=== PATIENT | female | born 1990 | race African-American/Black ===

== ENCOUNTER 2023-12-20 09:12 | Emergency (ER) | payer OTHER, SELFPAY ==
[2023-12-20 09:19] VITALS: BP 132/89; PULSE 91; TEMP 36.4; O2SAT 100; BMI 27.5
[2023-12-20 09:25] VITALS: BP 132/89; O2SAT 100
--- NOTE | 2023-12-20 09:55 | ECG_ITS ---
The [facility] [place] Test Date: 2023-12-20 Pat Name: NBA IRVIN Department: Room: - Gender: Female Nurse Ortho: : 1990 Requested By: Order Number: [id number] Reading MD: JOE SUTTON Measurements Intervals [place] Rate: 77 P: 9 CO: 126 QRS: -65 QRSD: 88 T: -17 QT: 362 QTc: 394 Interpretive Statements 1100 Sinus rhythm 2420 RSR (QR) in lead V1/V2, consistent with right ventricular conduction delay 7200 Abnormal left axis deviation Nonspecific T wave changes inferiorly 9130 borderline ECG No previous ECG available for comparison Electronically Signed On 12-20-2023 18:17:46 EDT by JOE SUTTON
--- NOTE | 2023-12-20 09:55 | XR_ITS ---
The [address] [address] Patient Name: NBA IRVIN MRN: [id number] date: 1990 Sex: F Assigned Patient Location: ER Current Patient Location: ER Accession/Order Number: [id number] Exam Date: 12/20/2023 10:55 Report Date: 12/20/2023 11:46 At the request of: DELTA SHI Procedure: XR chest 1V EXAM: Portable chest REASON FOR EXAM: Peripheral edema and shortness of breath with exertion for 2 weeks. TECHNIQUE: A portable frontal view of the chest was obtained. COMPARISON: 11/28/2015. FINDINGS: The lungs are well-inflated and clear. The heart and mediastinum are normal. There is no mass or pathologic adenopathy. Osseous structures are normal. XR/XR chest 1V IMPRESSION: No acute cardiopulmonary process. Electronically authenticated by: ADRIEL LINK Date: 12/20/2023 11:46
--- NOTE | 2023-12-20 09:56 | ED_ITS ---
HPI HPI - General Adult General Chief complaint: Chest Pain Stated complaint: BILATERAL SWELLING IN HANDS AND FEET/CHEST PAIN Time Seen by Provider: 12/20/23 09:18 History of Present Illness HPI narrative: 33-year-old female presented to the emergency department for swelling in her feet and ankles and hands. She has been having this for about 3 weeks and went to urgent care. She states they did some blood test and told her that her cholesterol was high. No prescriptions were given and she was told to follow-up with her PCP but she does not have 1. She states that the swelling gets worse as she is standing and when she first wakes up in the morning the swelling in her feet is not too bad. She does not complain of chest pain but feels sometimes a heaviness. No fever or cough. Related Data Previous Rx's ?Medication ?Instructions ?Recorded furosemide 20 mg tablet (Lasix) 20 mg PO DAILY #7 tabs 12/20/23 Allergies Allergy/AdvReac Type Severity Reaction Status Date / Time No Known Drug Allergies Allergy Verified 12/20/23 09:19 Opioid HPI Opioid Management Most Recent Opioid Data: No Data to Display Review of Systems ROS Narrative A ten point review of systems is negative except as noted above. Exam Narrative Exam Narrative: Nurses note and vital signs reviewed and patient is not hypoxic. General: The patient appears well and in no apparent distress. Patient is resting comfortably on cart. Skin: Warm, dry, no pallor noted. There is no rash noted. Head: Normocephalic, atraumatic Eye: Normal conjunctiva, no drainage Ears, Nose, Mouth, and Throat: oral mucosa is moist. Nares patent. Cardiovascular: Regular Rate and Rhythm Respiratory: Patient is in no distress, no accessory muscle use, lungs are clear to auscultation, no wheezing, rales or rhonchi Back: non-tender GI: Normal bowel sounds, no tenderness to palpation, no masses appreciated. No rebound, guarding, or rigidity noted. Musculoskeletal: The patient has no evidence of calf tenderness, trace edema is present in her feet and hands, symmetrical pulses noted bilaterally Neurological: A&O, normal speech Psychiatric: Cooperative Constitutional Vital Signs, click to edit/add: Last Vital Signs Temp 97.6 F 12/20/23 09:19 Pulse 87 12/20/23 12:20 Resp 18 12/20/23 12:20 BP 130/82 12/20/23 12:20 Pulse Ox 100 12/20/23 12:20 O2 Del Method Room Air 12/20/23 09:19 Course Vital Signs Vital signs: Vital Signs Temperature 97.6 F 12/20/23 09:19 Pulse Rate 91 H 12/20/23 09:19 Respiratory Rate 18 12/20/23 09:19 Blood Pressure 132/89 12/20/23 09:19 Pulse Oximetry 100 12/20/23 09:19 Oxygen Delivery Method Room Air 12/20/23 09:19 Temperature 97.6 F 12/20/23 09:19 Pulse Rate 87 12/20/23 12:20 Respiratory Rate 18 12/20/23 12:20 Blood Pressure 130/82 12/20/23 12:20 Pulse Oximetry 100 12/20/23 12:20 Oxygen Delivery Method Room Air 12/20/23 09:19 Medical Decision Making MDM Narrative Medical decision making narrative: Her workup here is negative. She will be placed on a short course of Lasix and was given a list of PCPs. Treatment diagnosis and follow-up were discussed with the patient. Differential Diagnosis Differential Diagnosis: Peripheral edema, kidney failure, CHF Lab Data Lab results reviewed: Yes I reviewed the patient's lab results Labs: Lab Results 12/20/23 12/20/23 Range/Units 09:54 11:00 WBC 6.9 (4.0-11.0) 10^3/uL RBC 4.21 (4.20-5.40) 10^6/uL Hgb 10.3 L (12.0-16.0) g/dL Hct 33.8 L (36.0-48.0) % MCV 80.3 L (81.0-99.0) fL MCH 24.5 L (26.7-34.0) pg MCHC 30.5 (29.9-35.2) g/dL RDW 14.1 (11.0-15.0) % Plt Count 256 (150-450) 10^3/uL MPV 11.2 (9.5-13.5) fL Neut % (Auto) 61.7 (43.0-75.0) % Lymph % (Auto) 28.8 (20.5-60.0) % Larue % (Auto) 6.9 (1.7-12.0) % Eos % (Auto) 1.7 (0.9-7.0) % Baso % (Auto) 0.6 (0.2-2.0) % Neut # (Auto) 4.3 (1.4-6.5) 10^3/uL Lymph # (Auto) 2.0 (1.2-3.8) 10^3/uL Larue # (Auto) 0.5 (0.3-0.8) 10^3/uL Eos # (Auto) 0.1 (0.0-0.7) 10^3/uL Baso # (Auto) 0.0 (0.0-0.1) 10^3/uL Abs Immat Gran (auto) 0.02 (0.00-0.03) 10^3/uL Imm/Tot Granulo (auto) 0.3 (0.0-0.5) % Sodium 139 (136-145) mmol/L Potassium 3.5 (3.5-5.1) mmol/L Chloride 103 (98-107) mmol/L Carbon Dioxide 25.2 (21.0-32.0) mmol/L Anion Gap 14.3 BUN 12.0 (7.0-18.0) mg/dL Creatinine 0.96 (0.55-1.02) mg/dL Est GFR ( Amer) >60 (>=60) Est GFR (Non-Af Amer) >60 (>=60) BUN/Creatinine Ratio 12.5 Glucose 106 (74-106) mg/dL Calcium 8.9 (8.5-10.1) mg/dL Total Bilirubin 0.8 (0.2-1.0) mg/dL Direct Bilirubin 0.2 (0.0-0.2) mg/dL AST 18 (15-37) U/L ALT 25 (14-59) U/L Alkaline Phosphatase 57 (46-116) U/L Troponin I High Sens <4.0 L (4.0-51.3) pg/mL Total Protein 7.5 (6.4-8.2) g/dL Albumin 4.0 (3.4-5.0) g/dL Globulin 3.5 g/dL Albumin/Globulin Ratio 1.1 Urine Color Yellow (YELLOW) Urine Clarity Clear (CLEAR) Urine pH 6.0 (5.0-9.0) Ur Specific [place] >=1.030 A (1.005-1.025) Urine Protein Negative (NEG/TRACE) mg/dL Urine Glucose (UA) Negative (NEGATIVE) mg/dL Urine Ketones Negative (NEGATIVE) mg/dL Urine Occult Blood Negative (NEGATIVE) Urine Nitrite Negative (NEGATIVE) Urine Bilirubin Negative (NEGATIVE) Urine Urobilinogen 1.0 (0.2-1.0) EU/dL Ur Leukocyte Esterase Negative (NEGATIVE) Urine RBC None seen (0-2) #/HPF Urine WBC None seen (NONE SEEN) #/HPF Ur Squamous Epith Cells Many A (NONE/RARE) #/LPF Urine Bacteria Trace A (NONE SEEN) #/HPF Urine Mucus None seen (NONE SEEN) ECG Data Attestation: I personally reviewed and interpreted this ECG as follows: (EKG on my interpretation shows normal sinus rhythm without acute change) Discharge Plan Discharge Stand Alone Forms: Portal Instructions Chief Complaint: Chest Pain Clinical Impression: Peripheral edema Patient Disposition: Home, Self-Care Time of Disposition Decision: 12:25 Condition: Good Prescriptions / Home Meds: New furosemide [Lasix] 20 mg tablet 20 mg PO DAILY Qty: 7 0RF Print Language: Citizen Of [place] Instructions: Leg Edema (ED) Additional Instructions: See attached list of PCPs Referrals: Physician,Non-Staff, MD [Primary Care Provider] - 1 week
[2023-12-20 10:04] LABS: Basophils Percent Auto 0.6 % (0.2-2.0); Eosinophils Absolute Auto 0.1 10^3/uL (0.0-0.7); Eosinophils Percent Auto 1.7 % (0.9-7.0); Hematocrit 33.8 % (36.0-48.0); Hemoglobin 10.3 g/dL (12.0-16.0); Immature Granulocytes Abs Auto 0.02 10^3/uL (0.00-0.03); Immature Granulocytes Pct Auto 0.3 % (0.0-0.5); Lymphocytes Percent Auto 28.8 % (20.5-60.0); Mean Corpuscular HGB Conc 30.5 g/dL (29.9-35.2); Mean Corpuscular Hemoglobin 24.5 pg (26.7-34.0); Mean Corpuscular Volume 80.3 fL (81.0-99.0); Mean Platelet Volume 11.2 fL (9.5-13.5); Monocytes Absolute Auto 0.5 10^3/uL (0.3-0.8); Monocytes Percent Auto 6.9 % (1.7-12.0); Neutrophils Absolute Auto 4.3 10^3/uL (1.4-6.5); Neutrophils Percent Auto 61.7 % (43.0-75.0); Platelet Count 256 10^3/uL (150-450); Red Blood Count 4.21 10^6/uL (4.20-5.40); Red Cell Distribution Width 14.1 % (11.0-15.0); White Blood Count 6.9 10^3/uL (4.0-11.0)
[2023-12-20 10:20] VITALS: PULSE 74; O2SAT 99
[2023-12-20 10:25] LABS: Anion Gap 14.3; BUN Creatinine Ratio 12.5; Calcium 8.9 mg/dL (8.5-10.1); Carbon Dioxide 25.2 mmol/L (21.0-32.0); Chloride 103 mmol/L (98-107); Estimated GFR (African America >60 (>=60); Estimated GFR (Non-African Ame >60 (>=60); Glucose 106 mg/dL (74-106); Potassium 3.5 mmol/L (3.5-5.1); Sodium 139 mmol/L (136-145)
[2023-12-20 10:26] LABS: Alanine Aminotransferase 25 U/L (14-59); Albumin Globulin Ratio 1.1; Alkaline Phosphatase 57 U/L (46-116); Aspartate Amino Transferase 18 U/L (15-37); Bilirubin Direct 0.2 mg/dL (0.0-0.2); Bilirubin Total 0.8 mg/dL (0.2-1.0); Globulin 3.5 g/dL; Total Protein 7.5 g/dL (6.4-8.2); Troponin I High Sensitivity <4.0 pg/mL (4.0-51.3)
[2023-12-20 10:40] VITALS: PULSE 81; O2SAT 100
[2023-12-20 11:09] LABS: Bilirubin Urine NEGATIVE (NEGATIVE); Blood Urine NEGATIVE (NEGATIVE); Clarity Urine CLEAR (CLEAR); Color Urine YELLOW (YELLOW); Glucose Urine UA NEGATIVE (NEGATIVE); Ketones Urine NEGATIVE (NEGATIVE); Leukocyte Esterase Urine NEGATIVE (NEGATIVE); Nitrite Urine NEGATIVE (NEGATIVE); Protein Urine NEGATIVE (NEG/TRACE); Specific Gravity Urine >=1.030 (1.005-1.025)
[2023-12-20 11:18] LABS: Bacteria Urine TRACE #/HPF (NONE SEEN); RBC Urine NONE SEEN #/HPF (0-2); WBC Urine NONE SEEN #/HPF (NONE SEEN)
[2023-12-20 11:19] LABS: Mucus Urine NONE SEEN (NONE SEEN); Squamous Epithelial Cell Urine MANY #/LPF (NONE/RARE)
[2023-12-20 12:20] VITALS: BP 130/82; PULSE 87; O2SAT 100
== END 2023-12-20 12:35 | disposition home or self-care (01) ==
PROVIDERS: Emergency Provider Emergency Medicine
DX: R60.9 Edema, unspecified (principal)
CPT/HCPCS: 36415; 71045; 80048; 80076; 81001; 84484; 85025; 93005; 99285